=== PATIENT | male | born 1990 | race Caucasian/White ===

== ENCOUNTER 2016-05-06 17:30 | Emergency (ER) | payer SELFPAY ==
[~2016-05-06] VITALS: Ht 180.3 cm; Wt 74.8 kg
[2016-05-06 18:51] VITALS: BP 139/75
[2016-05-06] MEDS ORDERED: BACITRACIN ZINC OINT PACKET 1 EA PACKET TP ONE (19:43)
[2016-05-06] MEDS ORDERED: SILVER NITRATE APPLICATOR 1 EA BOX ONE ×2 (19:43)
[2016-05-06] MEDS ORDERED: HYDROCODONE/APAP 10/325MG 1 EA TABLET PO ONE (20:00)
[2016-05-06] MEDS ORDERED: HYDROCODONE/APAP 10/325MG 1 EA TABLET ONE (20:55)
== END 2016-05-06 21:10 | disposition home or self-care (01) ==
LOC: ER 17:32
DX: S31.21XA Laceration without foreign body of penis, initial encounter (principal); F17.200 Nicotine dependence, unspecified, uncomplicated; X58.XXXA Exposure to other specified factors, initial encounter; Y93.9 Activity, unspecified; Y92.89 Other specified places as the place of occurrence of the external cause; Y99.8 Other external cause status
CPT/HCPCS: 99283; A4606; Z7610

== ENCOUNTER 2018-09-18 19:28 | Emergency (ER) | payer OTHER ==
[~2018-09-18] VITALS: Ht 177.8 cm; Wt 74.8 kg
[2018-09-18 19:56] VITALS: BP 113/67
[2018-09-18] MEDS ORDERED: predniSONE 20 MG TABLET ONE (20:51)
[2018-09-18] MEDS ORDERED: IPRATROPIUM NEB FS 0.5 MG/2.5 ML AMPUL.NEB ONE (20:54)
[2018-09-18] MEDS ORDERED: ALBUTEROL FS 2.5 MG/3 ML VIAL.NEB ONE (20:54)
[2018-09-18] MEDS ORDERED: IPRATROPIUM NEB FS 0.5 MG/2.5 ML AMPUL.NEB NEB ONE (21:00)
[2018-09-18] MEDS ORDERED: predniSONE 20 MG TABLET PO ONE (21:00)
[2018-09-18] MEDS ORDERED: ALBUTEROL FS 2.5 MG/3 ML VIAL.NEB NEB ONE (21:00)
== END 2018-09-18 22:51 | disposition home or self-care (01) ==
LOC: ER 19:28
DX: J20.9 Acute bronchitis, unspecified (principal); Z87.891 Personal history of nicotine dependence
CPT/HCPCS: 71045; 94640; 99283; J7512